=== PATIENT | female | born 1995 | race Two or more races ===

== ENCOUNTER 2023-02-22 23:32 | Emergency (ER) | payer OTHER ==
[~2023-02-22] VITALS: Ht 160 cm; Wt 72.6 kg
[2023-02-23] MEDS ORDERED: ZYNCOF 20-400120 ML PO (05:51)
[2023-02-23] MEDS ORDERED: SYMBICORT 16010.2 GM IH (05:51)
[2023-02-23] MEDS ORDERED: DOLOGESIC-DF 51 EACH PO (05:51)
== END 2023-02-23 06:02 ==
LOC: ER 23:32
DX: R53.81 Other malaise (principal); G44.89 Other headache syndrome; R50.9 Fever, unspecified; Z20.822 Contact with and (suspected) exposure to COVID-19

== ENCOUNTER 2024-12-26 11:56 | Emergency (ER) | payer OTHER ==
[~2024-12-26] VITALS: Ht 162.6 cm; Wt 65.3 kg
[~2024-12-26 11:56] MED LIST: DOLOGESIC-DF 51 EACH PO; SYMBICORT 16010.2 GM IH; ZYNCOF 20-400120 ML PO
[2024-12-26] MEDS ORDERED: KETOROLAC TROMETHAMINE 60 MG VIAL IM STA (14:54)
[2024-12-26] MEDS ORDERED: KETOROLAC TROMETHAMINE 60 MG VIAL IM ONE (15:24)
== END 2024-12-26 17:29 | disposition home or self-care (01) ==
LOC: ER 11:58
DX: S60.00XA Contusion of unspecified finger without damage to nail, initial encounter (principal); X83.8XXA Intentional self-harm by other specified means, initial encounter; Y93.89 Activity, other specified; Y92.89 Other specified places as the place of occurrence of the external cause; Y99.8 Other external cause status